=== PATIENT | male | born 1985 | race African-American/Black ===

== ENCOUNTER 2017-12-27 04:54 | Emergency (ER) | payer SELFPAY ==
[~2017-12-27] VITALS: Ht 177.8 cm; Wt 81.6 kg
[2017-12-27 05:01] VITALS: BP 121/68
== END 2017-12-27 05:37 | disposition home or self-care (01) ==
LOC: ER 04:54
DX: B30.9 Viral conjunctivitis, unspecified (principal)
CPT/HCPCS: 99281; A4606; Z7610; Z7502